=== PATIENT | male | born 1980 | race Caucasian/White ===

== ENCOUNTER 2018-02-15 10:34 | Emergency (ER) | payer MEDICAID ==
[2018-02-15] MEDS ORDERED: ONDANSETRON DISINTEGRATING 4 MG TAB PO ONE (11:04)
--- NOTE | 2018-02-15 11:09 | EDPHY ---
H & P Time Seen by Provider: 02/15/18 10:51 HPI/ROS: This patient reports onset nausea today associated with diarrhea. He had a 2 episodes of loose watery stools last night and 1 episode today. He also reports intermittent abdominal cramping though does not have any abdominal pain at this time. He also reports a subtle feeling of chills but when asked carefully about this he does not describe rigors. He has had no fevers. He came here by private vehicle. He reported improvement from Pepto-Bismol and no other exacerbating factors. ROS: Constitutional: No fevers HEENT: No URI symptoms Pulmonary: No cough shortness of breath Cardiovascular: No chest pain heart palpitations or lightheadedness GI: No abdominal pain currently. No bloody stools. No vomiting. Positive nausea. : No dysuria. No testicular pain or swelling. Musculoskeletal: Chronic back pain unchanged 10 point ROS is otherwise negative. Past Medical/Surgical History: Chronic back pain and history of back surgeries Social History: Moved here 1 month ago from [place]. Nonsmoker except rare nicotine of a ping. Rare alcohol-last use a few weeks ago. No recreational drug use. No recent foreign travel. No suspect food ingestion. Smoking Status: Former smoker Physical Exam: Vital signs are normal exception of hypertension General Appearance: Alert, no distress. Eyes: Pupils equal and round no pallor or injection. ENT, Mouth: Mucous membranes moist. Respiratory: There are no retractions, lungs are clear to auscultation. Cardiovascular: Regular rate and rhythm. Gastrointestinal: Hyperactive bowel sounds, soft, nontender, no organomegaly Neurological: GCS 15. Skin: Warm and dry, no rashes. Musculoskeletal: Neck is supple nontender. Extremities are symmetrical, full range of motion. Psychiatric: Mood and affect are normal DIFFERENTIAL DIAGNOSIS: After history and physical exam differential diagnosis was considered for early mild viral gastroenteritis, food intolerance, IBS, hepatitis, UTI Constitutional: Initial Vital Signs Temperature (C) 37 C 02/15/18 10:38 Heart Rate 76 02/15/18 10:38 Respiratory Rate 18 02/15/18 10:38 Blood Pressure 148/107 H 02/15/18 10:38 O2 Sat (%) 99 02/15/18 10:38 O2 Delivery Mode Room Air Allergies/Adverse Reactions: latex Allergy (Verified 02/15/18 10:41) Pt unsure of reaction pollen Allergy (Uncoded 02/15/18 10:41) Pt reports hayfever Home Medications: Medication Instructions Recorded Baclofen 02/15/18 Cyclobenzaprine 02/15/18 MDM/Departure - [facility] ED Course/Re-evaluation: Patient declines IV and lab workup at this time. He declines urinalysis. I counseled regarding viral gastroenteritis. He appears well-hydrated currently with no actual vomiting but nausea that improved with Zofran. He understands the possibility of other diagnoses that we cannot rule out without workup any accepts this risk with plan to go home on Zofran and Imodium as needed. - Depart Disposition: Home, Routine, Self-Care Clinical Impression: Viral gastroenteritis Condition: Good Instructions: Gastroenteritis (ED) Additional Instructions: Diagnosis: Viral gastroenteritis Plan: Slater diet-bananas, rice, applesauce, soup, toast, plenty fluids Zofran if needed for nausea vomiting Pepto-Bismol as needed for symptoms Imodium if he developed worsening diarrhea Return for any significant worsening despite treatment plan. Referrals: NUSRAT HUMPHREYS MD [Other] - As per Instructions
[2018-02-15 11:18] VITALS: BP 154/104
== END 2018-02-15 11:18 | disposition home or self-care (01) ==
LOC: CED 10:34
DX: A08.4 Viral intestinal infection, unspecified (principal)